=== PATIENT | male | born 1935 ===

== ENCOUNTER 2024-11-23 14:21 | Outpatient (CLI) | payer OTHER | END 2024-11-23 14:22 | disposition home or self-care (01) | LOC: LAB 14:21 | DX: T86.842 Corneal transplant infection (principal) ==

== ENCOUNTER 2025-02-18 11:37 | Outpatient (CLI) | payer OTHER | END 2025-02-18 11:43 | disposition home or self-care (01) | LOC: LAB 11:37 | DX: H16.209 Unspecified keratoconjunctivitis, unspecified eye (principal); H16.142 Punctate keratitis, left eye ==

== ENCOUNTER → 2025-06-23 11:45 | Outpatient (CLI) | payer OTHER | END | disposition home or self-care (01) | LOC: LAB 11:45 | DX: H44.19 Other endophthalmitis (principal) ==